=== PATIENT | male | born 1980 ===

== ENCOUNTER 2020-05-08 09:31 | Emergency (ER) | payer OTHER ==
[~2020-05-08] VITALS: Ht 167.6 cm; Wt 83.0 kg
[~2020-05-08 09:31] MED LIST: ATRIPLA TABLET1 TAB; VASOTEC2.5 MG
[2020-05-08] MEDS ORDERED: TIVICAY10 MG (09:38)
[2020-05-08] MEDS ORDERED: DESCOVY 200-251 EACH PO (09:38)
== END 2020-05-08 16:27 | disposition home or self-care (01) ==
LOC: ER 09:31
DX: U07.1 COVID-19 (principal); B34.9 Viral infection, unspecified